=== PATIENT | male | born 1970 | race Caucasian/White ===

== ENCOUNTER 2021-10-08 10:36 | Outpatient (REF) | payer OTHER, SELFPAY ==
[2021-10-08 12:34] LABS: Hematocrit 45.2 % (42.0-52.0); Hemoglobin 15.2 g/dl (14.0-18.0); Mean Corpuscular HGB Conc 33.6 g/dl (31.0-36.0); Mean Corpuscular Hemoglobin 30.6 pg (27.0-33.0); Mean Corpuscular Volume 91.1 fL (80.0-98.0); Mean Platelet Volume 11.2 fL (9.4-12.4); Platelet Count 187 X10*3/uL (160-400); Red Blood Count 4.96 X10*6/uL (4.60-5.80); Red Cell Distribution Width 12.6 % (11.0-16.0); White Blood Count 6.6 X10*3/uL (4.8-10.8)
[2021-10-08 13:12] LABS: Alanine Aminotransferase 33 U/L (0-40); Albumin Level 4.7 g/dL (3.5-5.0); Alkaline Phosphatase 80 U/L (39-117); Anion Gap 15 (12-20); Aspartate Amino Transferase 25 U/L (5-37); Bilirubin Direct 0.3 mg/dL (0.0-0.5); Bilirubin Total 0.9 mg/dL (0.0-1.0); Blood Urea Nitrogen 15 mg/dL (9-16); Calcium 9.1 mg/dL (8.4-10.2); Carbon Dioxide 24 mmol/L (22-29); Chloride 104 mmol/L (96-108); Cholesterol 206 mg/dL; Estimated Glomerular Filt Rate > 60; Glucose Random 91 mg/dL (60-115); HDL Cholesterol 28 mg/dL; Potassium 4.3 mmol/L (3.3-5.1); Sodium 139 mmol/L (135-145); Total Protein 7.7 g/dL (6.5-8.0); Triglycerides 624 mg/dL
[2021-10-08 13:13] LABS: Appearance Urine CLEAR; Color Urine YELLOW; Glucose Urine UA NEG (NEG); Leukocyte Esterase Urine NEG (NEG); Nitrite Urine NEG (NEG); PH 5.5 (5.0-8.0); Specific Gravity - Urine >= 1.030 (1.005-1.025); Urine Blood NEG (NEG); Urine Ketones 5 MG/DL (NEG); Urine Protein NEG (NEG-TRACE)
[2021-10-08 13:20] LABS: Prostate Specific Antigen Scr 0.32 ng/mL (<0.05-4.0); Thyroid Stimulating Hormone 1.92 uIU/mL (0.32-4.0)
== END 2021-10-08 10:37 | disposition home or self-care (01) ==
LOC: HO.LAB 10:36
PROVIDERS: PCP Internal Medicine; Visit Provider Internal Medicine
DX: E78.00 Pure hypercholesterolemia, unspecified (principal); Z12.5 Encounter for screening for malignant neoplasm of prostate
CPT/HCPCS: 36415; 80048; 80061; 80076; 81003; 84153; 84443; 85027

== ENCOUNTER 2022-12-09 11:44 | Outpatient (AMB) | payer OTHER, SELFPAY ==
--- NOTE | 2022-12-09 12:55 | AM.OFFWIN_ITS ---
Intake Vital Signs 12/09/22 12:56 Weight 214 lb BP 160/100 H Blood Pressure Location Rt brachial Position Sitting Pulse 70 Pulse Source Pulse Oximeter Pulse Oximetry (%) 97 Oxygen Delivery Method Room Air Intake Visit Reasons: EST/breathing problems Intake Note: Patient here because he has been having some breathing problems, cough, chills, nausea and wheezing. Patient Tobacco Use Status: Current everyday Tobacco user Allergies No Known Allergies [No Known Allergies*] Allergy (Verified 12/09/22 12:58) Do you need a note to return to daycare/school/sports/work: Yes HPI EST/breathing problems HPI Details Patient presents for a sick visit. Reporting symptoms of sinus congestion, sore throat and difficulty swallowing. Low-grade fever. No family member is sick. No recent travel. Patient reports symptoms of malaise and fatigue.. [facility] Surgical History No pertinent past surgical history Family History Father Substance use disorder Mother Medical history unknown Social History Housing: House Alcohol intake: current Alcohol intake frequency: 0-2 drinks per day Alcohol type: hard liquor Patient Tobacco Use Status: Current everyday Tobacco user Tobacco use type: Cigarette Cigarettes Per Day: 5 e-Cigarette/Vaping Use: Never Used Second Hand Smoke Exposure: No service: No Current occupational status: employed Current occupational exposures/hazards: No Cognitive needs: No Hearing needs: No Vision needs: Yes Physical Exam Vital Signs: Last Vital Signs Pulse 70 12/09/22 12:56 BP 160/100 H 12/09/22 12:56 Pulse Ox 97 12/09/22 12:56 Oxygen Delivery Method Room Air 12/09/22 12:56 Const General: cooperative and healthy appearing Nutritional Appearance: well nourished Orientation/consciousness: patient oriented x3 Limitations: no limitations HEENT Head: Yes normal to inspection Eyes General: appearance normal, both eyes and all related structures Neck Neck: Yes normal visual inspection Chest Chest palpation & inspection: normal palpation of entire chest wall Resp Effort & Inspection: normal respiratory effort Neuro General: patient oriented x3 Assessment & Plan Assessment & Plan (1) Acute bronchitis: Code(s): J20.9 - Acute bronchitis, unspecified Plan: Antibiotics ordered. Increase fluid intake. Tylenol for aches and pains. If symptoms worsen, follow-up here for a recheck. Chest x-ray was personally reviewed by me. Orders: Orders XR chest 2V Today R05.9 - Cough, unspecified BinaxNOW Covid-19 Ag Today J06.9 - Acute upper respiratory infection, unspecified Medications: New azithromycin take 500 mg today (day 1), then 250 mg for 4 days (days 2-5) PO 6 tabs 0RF prednisone 60 mg (3 x 20 mg) PO DAILY 9 tabs 0RF albuterol sulfate 90 mcg/actuation (Ventolin HFA) 1 inh inhalation QID PRN 8.5 grams 1RF shortness of breath or wheezing Coding Level of Care Code Est Pt Level 4 (47533) Diagnoses Acute bronchitis J20.9
[2022-12-09 12:56] VITALS: BP 160/100; PULSE 70; O2SAT 97
== END 2022-12-09 13:59 | disposition home or self-care (01) ==
PROVIDERS: PCP Internal Medicine; Visit Provider Internal Medicine
DX: J20.9 Acute bronchitis, unspecified (principal)
CPT/HCPCS: 99214

== ENCOUNTER 2022-12-09 13:21 | Outpatient (REF) | payer OTHER, SELFPAY ==
--- NOTE | ~2022-12-09 | XR_ITS ---
EXAMINATION: XR CHEST 2 VIEW CLINICAL INFORMATION: Cough COMPARISON: 10/06/2019 TECHNIQUE: PA and lateral views of the chest obtained. FINDINGS: The lungs are clear. There are no pleural effusions. The cardiomediastinal silhouette is normal. XR/XR chest 2V IMPRESSION: No acute cardiopulmonary disease.
[2022-12-09 14:03] LABS: Binax Internal Control QC Valid; Binax Now Covid-19 Ag Negative (Negative); Binax Performed by: HO.BONILM
== END 2022-12-09 13:22 | disposition home or self-care (01) ==
LOC: HO.HMGCX 13:21
PROVIDERS: PCP Internal Medicine; Visit Provider Internal Medicine
DX: R05.9 Cough, unspecified (principal); J06.9 Acute upper respiratory infection, unspecified; Z20.822 Contact with and (suspected) exposure to COVID-19
CPT/HCPCS: 71046; 87811; C9803

== ENCOUNTER 2023-05-07 08:20 | Outpatient (AMB) | payer OTHER, SELFPAY ==
[2023-05-07 08:24] VITALS: BP 140/82; PULSE 85; O2SAT 98; BMI 30.4
--- NOTE | 2023-05-07 08:24 | MHC.PC.OV ---
Vital Signs 05/07/23 08:24 Height 5 ft 9 in Weight 206 lb BMI 30.4 BP 140/82 H Blood Pressure Location Lt brachial Position Sitting Pulse 85 Pulse Source Pulse Oximeter Pulse Oximetry (%) 98 Oxygen Delivery Method Room Air Intake Visit Reasons: Physical Exam Allergies No Known Allergies [No Known Allergies*] Allergy (Verified 05/07/23 09:01) Medication List - Last Reconciled 05/07/23 by Toney Gage MD albuterol sulfate 90 mcg/actuation (Ventolin HFA) 1 inh inhalation QID PRN citalopram 10 mg PO DAILY Tobacco use date assessed: 05/07/23 Dental Screening Dental Screen Date: 05/07/23 Did you have a dental visit in the last 12 months?: Yes Did you have a dental problem in the last 6 months where you did not have access to dental care?: No Was dental information given to patient?: Patient has dentist HPI Physical Exam HPI Details 52-year-old male presents to the office for an annual physical. [facility] Medical History (Updated 05/07/23 @ 09:12 by Toney Gage MD) Generalized anxiety disorder Surgical History No pertinent past surgical history Family History Father Substance use disorder Mother Medical history unknown Social History Housing: House Alcohol intake: current Alcohol intake frequency: 0-2 drinks per day Alcohol type: hard liquor Patient Tobacco Use Status: Current everyday Tobacco user Tobacco use type: Cigarette Cigarettes Per Day: 10 e-Cigarette/Vaping Use: Never Used Second Hand Smoke Exposure: No service: No Current occupational status: employed Current occupational exposures/hazards: No Cognitive needs: No Hearing needs: No Vision needs: Yes Questionnaire PHQ-9 Over the last 2 weeks, how often have you been bothered by any of the following problems? 1. Little interest or pleasure in doing things: not at all 2. Feeling down, depressed, or hopeless: not at all 3. Trouble falling or staying asleep, or sleeping too much: not at all 4. Feeling tired or having little energy: not at all 5. Poor appetite or overeating: not at all 6. Feeling bad about yourself - or that you are a failure or have let yourself or your family down: not at all 7. Trouble concentrating on things, such as reading the newspaper or watching television: not at all 8. Moving or speaking so slowly that other people could have noticed. Or the opposite - being so fidgety or restless that you have been moving around a lot more than usual: not at all 9. Thoughts that you would be better off or of hurting yourself in some way: not at all Total score: 0 Depression Screening Interpretation: Negative Depression Screening Done: Yes Source: Developed by Drs. Andi Alvarado, Antonette Ulloa, Nicolas Camarillo and colleagues, with an educational cristobal from [employer]. Thrive Questionnaire Date Thrive assessed: 05/07/23 I am a: Patient What is your living situation today?: I have a steady place to live Within the past 12 months, did the food you bought not last and you didn't have the money to get more?: Never true Within the past 12 months, did you worry whether your food would run out before you got money to buy more?: Never true Do you have trouble paying for medicines?: No Do you have trouble getting transportation to medical appointments?: No Do you have trouble paying your heating and electricity bill?: No Do you have trouble taking care of your child, family member or friend?: No Do you have trouble with day-to-day activities such as bathing, preparing meals, shopping, managing finances, etc.?: No Are you currently unemployed and looking for a job?: No Are you interested in more education?: No Currently or been in a relationship where the following occur: no concerns reported THRIVE Score: 0 AUDIT C Alcohol Use Questionnaire (AUDIT-C) 1. How often do you have a drink containing alcohol?: 4 or more times a week 2. How many drinks containing alcohol do you have on a typical day when you are drinking?: 1 or 2 3. How often do you have six or more drinks on one occasion?: Never Total Score: 4 GARY-7 AMB Questionnaire GARY-7 Date GARY - 7 assessed: 05/07/23 Feeling nervous, anxious, or on edge: 1 = Several days Not being able to stop or control worryin = Several days Worrying too much about different things: 1 = Several days Trouble relaxin = Not at all Being so restless that it is hard to sit still: 0 = Not at all Becoming easily annoyed or irritable: 0 = Not at all Feeling afraid as if something awful might happen: 0 = Not at all Total GARY-7 score (0-4 normal; 5-9 mild; 10-14 moderate; 15-21 severe): 3 Source: Developed by Drs. Andi Alvarado, Antonette Ulloa, Nicolas Camarillo and colleagues, with an educational cristobal from [employer]. Physical exam (Primary Care) Vital Signs: Last Vital Signs Pulse 85 05/07/23 08:24 BP 140/82 H 05/07/23 08:24 Pulse Ox 98 05/07/23 08:24 Oxygen Delivery Method Room Air 05/07/23 08:24 Care Plan Goal for BP management: Blood pressure is stable. Currently on no medications. BMI result Body Mass Index 30.4 BMI Assessment/Plan discussion: High (1 lb per week weight loss suggested.) BMI High, discussed plan: lifestyle, weight reduction and dietary Tobacco/Smoking Status: Tobacco use Status Tobacco use date assessed 05/07/23 05/07/23 08:30 Patient Tobacco Use Status Current everyday Tobacco 05/07/23 08:30 Tobacco use type Cigarette 05/07/23 08:30 e-Cigarette/Vaping Use Never Used 05/07/23 08:30 PHQ-9: PHQ-9 Score PHQ-9: Total score 0 05/07/23 08:30 Depression Screening Interpretation: Negative Thrive Assessment: Date of Thrive Assessment Date Thrive assessed 05/07/23 05/07/23 08:30 Currently or been in a relationship where the following occur: no concerns reported Advance Care Planning discussion: Exists, not on file Date of discussion: 05/07/23 Who was present: Patient Forms completed: Health Care Proxy Time spent: 1-15 minutes, not on file Const General: cooperative and healthy appearing Nutritional Appearance: well nourished Orientation/consciousness: patient oriented x3 Limitations: no limitations HENMT Head: Yes normal to inspection Eyes General: appearance normal, both eyes and all related structures Neck Neck: Yes normal visual inspection Chest Chest palpation & inspection: normal palpation of entire chest wall Resp Effort & Inspection: normal respiratory effort Other: Genital: Scrotum is normal. Testicles are normal to palpation. Neuro General: patient oriented x3 Assessment and Plan Assessment & Plan (1) Annual physical exam: Code(s): Z00.00 - Encounter for general adult medical examination without abnormal findings Plan: Blood work has been ordered. Screening colonoscopy has been ordered. (2) Generalized anxiety disorder: Code(s): F41.1 - Generalized anxiety disorder Orders: Orders Complete Blood Count no Diff Today Z00.00 - Encounter for general adult medical examination without abnormal findings Lipid Panel Today Z00.00 - Encounter for general adult medical examination without abnormal findings Thyroid Stimulating Hormone Today Z00.00 - Encounter for general adult medical examination without abnormal findings Basic Metabolic Panel Today Z00.00 - Encounter for general adult medical examination without abnormal findings Liver Panel Today Z00.00 - Encounter for general adult medical examination without abnormal findings UA and rflx microscopic Today Z00.00 - Encounter for general adult medical examination without abnormal findings Prostate Specific Antigen Scr Today Z00.00 - Encounter for general adult medical examination without abnormal findings Coding Level of Care Code Est Pt Prev Care 40-64y(56800) Diagnoses Annual physical exam Z00.00 Generalized anxiety disorder F41.1 Additional Codes Vital Signs *Quality* - Advance Care Planning discussion: Exists, not on file ([id number]) Vital Signs *Quality* - Time spent: 1-15 minutes, not on file ([id number])
== END 2023-05-07 08:57 | disposition home or self-care (01) ==
PROVIDERS: PCP Internal Medicine; Visit Provider Internal Medicine
DX: Z00.00 Encounter for general adult medical examination without abnormal findings (principal); F41.1 Generalized anxiety disorder
CPT/HCPCS: 1123F; 1124F; 99396

== ENCOUNTER 2023-05-07 09:07 | Outpatient (REF) | payer OTHER, SELFPAY ==
[2023-05-07 09:37] LABS: Hematocrit 46.9 % (42.0-52.0); Hemoglobin 16.6 g/dl (14.0-18.0); Mean Corpuscular HGB Conc 35.4 g/dl (31.0-36.0); Mean Corpuscular Hemoglobin 31.3 pg (27.0-33.0); Mean Corpuscular Volume 88.3 fL (80.0-98.0); Mean Platelet Volume 9.8 fL (9.4-12.4); Platelet Count 203 X10*3/uL (160-400); Red Blood Count 5.31 X10*6/uL (4.60-5.80); Red Cell Distribution Width 12.6 % (11.0-16.0); White Blood Count 7.4 X10*3/uL (4.8-10.8)
[2023-05-07 10:34] LABS: Prostate Specific Antigen Scr 0.24 ng/mL (<0.05-4.0)
[2023-05-07 10:42] LABS: Thyroid Stimulating Hormone 2.24 uIU/mL (0.32-4.0); Triglycerides 2375 mg/dL (<150)
[2023-05-07 10:56] LABS: HDL Cholesterol 30 mg/dL (>40)
[2023-05-07 10:58] LABS: Alanine Aminotransferase 48 U/L (0-40); Albumin Level 4.7 g/dL (3.5-5.0); Alkaline Phosphatase 81 U/L (39-117); Anion Gap 18 (12-20); Aspartate Amino Transferase 32 U/L (5-37); Bilirubin Direct 0.2 mg/dL (0.0-0.5); Bilirubin Total 0.7 mg/dL (0.0-1.0); Blood Urea Nitrogen 19 mg/dL (9-16); Calcium 9.7 mg/dL (8.4-10.2); Carbon Dioxide 22 mmol/L (22-29); Chloride 102 mmol/L (96-108); Estimated Glomerular Filt Rate > 60; Glucose Random 115 mg/dL (60-115); Potassium 4.2 mmol/L (3.3-5.1); Sodium 138 mmol/L (135-145); Total Protein 8.3 g/dL (6.5-8.0)
[2023-05-07 10:59] LABS: Cholesterol 401 mg/dL (<200)
[2023-05-07 11:13] LABS: Appearance Urine Clear; Color Urine Dark Yellow; Glucose Urine UA Negative (Negative); Leukocyte Esterase Urine Negative (Negative); Nitrite Urine Negative (Negative); PH 5.5 (5.0-9.0); Specific Gravity - Urine >= 1.030 (1.005-1.025); UMIC TRIGGER UA YES; Urine Blood Negative (Negative); Urine Ketones Trace mg/dL (Negative); Urine Protein 30 (1+) mg/dL (Neg-Trace)
[2023-05-07 11:17] LABS: Bacteria Urine None Seen (None Seen); Hyaline Casts Urine 0-2 /LPF (0-2); RBC Urine 0-2 /HPF (0-2); Squamous Epithelial Cell Urine 0-2 /HPF (0-2); WBC Urine 0-5 /HPF (0-5)
== END 2023-05-07 09:08 | disposition home or self-care (01) ==
LOC: HO.LAB 09:07
PROVIDERS: PCP Internal Medicine; Visit Provider Internal Medicine
DX: Z00.00 Encounter for general adult medical examination without abnormal findings (principal); Z12.5 Encounter for screening for malignant neoplasm of prostate
CPT/HCPCS: 36415; 80048; 80061; 80076; 81001; 81003; 84153; 84443; 85027

== ENCOUNTER 2023-11-04 10:25 | Outpatient (REF) | payer OTHER, SELFPAY ==
[2023-11-04 12:24] LABS: Appearance Urine Clear; Color Urine Yellow; Glucose Urine UA Negative (Negative); Leukocyte Esterase Urine Negative (Negative); Nitrite Urine Negative (Negative); Urine Blood Negative (Negative); Urine Ketones Negative (Negative); Urine Protein Negative (Neg-Trace)
[2023-11-04 13:01] LABS: Alanine Aminotransferase 32 U/L (0-40); Albumin Level 4.6 g/dL (3.5-5.0); Alkaline Phosphatase 73 U/L (39-117); Anion Gap 16 (12-20); Aspartate Amino Transferase 26 U/L (5-37); Bilirubin Direct 0.2 mg/dL (0.0-0.5); Bilirubin Total 0.8 mg/dL (0.0-1.0); Blood Urea Nitrogen 22 mg/dL (9-16); Calcium 9.9 mg/dL (8.4-10.2); Carbon Dioxide 25 mmol/L (22-29); Chloride 103 mmol/L (96-108); Cholesterol 264 mg/dL (<200); Estimated Glomerular Filt Rate > 60; Glucose Random 107 mg/dL (60-115); HDL Cholesterol 38 mg/dL (>40); Potassium 4.5 mmol/L (3.3-5.1); Sodium 139 mmol/L (135-145); Total Protein 7.8 g/dL (6.5-8.0); Triglycerides 625 mg/dL (<150)
[2023-11-04 13:21] LABS: Thyroid Stimulating Hormone 1.82 uIU/mL (0.32-4.0)
[2023-11-04 13:41] LABS: Hematocrit 46.9 % (42.0-52.0); Mean Corpuscular HGB Conc 34.1 g/dl (31.0-36.0); Mean Corpuscular Volume 90.9 fL (80.0-98.0); Mean Platelet Volume 10.6 fL (9.4-12.4); Platelet Count 184 X10*3/uL (160-400); Red Blood Count 5.16 X10*6/uL (4.60-5.80); Red Cell Distribution Width 12.9 % (11.0-16.0)
== END 2023-11-04 10:26 | disposition home or self-care (01) ==
LOC: HO.LAB 10:25
PROVIDERS: PCP Internal Medicine; Visit Provider Internal Medicine
DX: E78.00 Pure hypercholesterolemia, unspecified (principal); F41.1 Generalized anxiety disorder
CPT/HCPCS: 36415; 80048; 80061; 80076; 81003; 84443; 85027

== ENCOUNTER 2023-11-05 14:59 | Outpatient (AMB) | payer OTHER, SELFPAY ==
[2023-11-05 15:02] VITALS: BP 160/92; PULSE 67; O2SAT 98; BMI 28.9
--- NOTE | 2023-11-05 15:02 | MHC.PC.OV ---
Vital Signs 11/05/23 15:02 Height 5 ft 9 in Weight 196 lb 0.8 oz BMI 28.9 BP 160/92 H Blood Pressure Location Lt brachial Position Sitting Pulse 67 Pulse Source Pulse Oximeter Pulse Oximetry (%) 98 Oxygen Delivery Method Room Air Intake Visit Reasons: 6mth f/u Intake Note: Patient is here to follow up Talent Rep Required: No Allergies No Known Allergies [No Known Allergies*] Allergy (Verified 11/10/23 11:08) Medication List - Last Reconciled 11/10/23 by Toney Gage MD citalopram 10 mg PO DAILY lisinopril 10 mg PO DAILY rosuvastatin 10 mg PO DAILY Tobacco use date assessed: 05/07/23 Dental Screening Dental Screen Date: 05/07/23 HPI 6mth f/u HPI Details 53-year-old male presents to the office for a follow-up visit. The citalopram is helping him. He is tolerating the medication well and reporting no side effects. Patient gives history of excessive alcohol use. [facility] Medical History (Updated 11/10/23 @ 11:09 by Toney Gage MD) Essential hypertension Borderline hypercholesterolemia Generalized anxiety disorder Surgical History No pertinent past surgical history Family History Father Substance use disorder Mother Medical history unknown Social History Housing: House Alcohol intake: current Alcohol intake frequency: 0-2 drinks per day Alcohol type: hard liquor Patient Tobacco Use Status: Current everyday Tobacco user Tobacco use type: Cigarette Cigarettes Per Day: 10 e-Cigarette/Vaping Use: Never Used Second Hand Smoke Exposure: No service: No Current occupational status: employed Current occupational exposures/hazards: No Cognitive needs: No Hearing needs: No Vision needs: Yes Questionnaire PHQ-9 Over the last 2 weeks, how often have you been bothered by any of the following problems? 1. Little interest or pleasure in doing things: not at all 2. Feeling down, depressed, or hopeless: not at all 3. Trouble falling or staying asleep, or sleeping too much: not at all 4. Feeling tired or having little energy: not at all 5. Poor appetite or overeating: not at all 6. Feeling bad about yourself - or that you are a failure or have let yourself or your family down: not at all 7. Trouble concentrating on things, such as reading the newspaper or watching television: not at all 8. Moving or speaking so slowly that other people could have noticed. Or the opposite - being so fidgety or restless that you have been moving around a lot more than usual: not at all 9. Thoughts that you would be better off or of hurting yourself in some way: not at all Total score: 0 Depression Screening Interpretation: Negative Depression Screening Done: Yes Source: Developed by Drs. Andi Alvarado, Antonette Ulloa, Nicolas Camarillo and colleagues, with an educational cristobal from [employer]. Thrive Questionnaire Date Thrive assessed: 05/07/23 AUDIT C Alcohol Use Questionnaire (AUDIT-C) 1. How often do you have a drink containing alcohol?: 4 or more times a week 2. How many drinks containing alcohol do you have on a typical day when you are drinking?: 1 or 2 3. How often do you have six or more drinks on one occasion?: Never Total Score: 4 GARY-7 AMB Questionnaire GARY-7 Date GARY - 7 assessed: 05/07/23 Source: Developed by Drs. Andi Alvarado, Nicolas Aranda and colleagues, with an educational cristobal from [employer]. Physical exam (Primary Care) Vital Signs: Last Vital Signs Pulse 67 11/05/23 15:02 BP 160/92 H 11/05/23 15:02 Pulse Ox 98 11/05/23 15:02 Oxygen Delivery Method Room Air 11/05/23 15:02 BMI result Body Mass Index 28.9 Tobacco/Smoking Status: Tobacco use Status Tobacco use date assessed 05/07/23 11/05/23 15:03 Patient Tobacco Use Status Current everyday Tobacco 11/05/23 15:03 Tobacco use type Cigarette 11/05/23 15:03 e-Cigarette/Vaping Use Never Used 11/05/23 15:03 PHQ-9: PHQ-9 Score PHQ-9: Total score 0 11/05/23 16:29 Depression Screening Interpretation: Negative Thrive Assessment: Date of Thrive Assessment Date Thrive assessed 05/07/23 11/05/23 15:03 Const General: cooperative and healthy appearing Nutritional Appearance: well nourished Orientation/consciousness: patient oriented x3 Limitations: no limitations HENMT Head: Yes normal to inspection Eyes General: appearance normal, both eyes and all related structures Neck Neck: Yes normal visual inspection Chest Chest palpation & inspection: normal palpation of entire chest wall Resp Effort & Inspection: normal respiratory effort Neuro General: patient oriented x3 Assessment and Plan Assessment & Plan (1) Borderline hypercholesterolemia: Code(s): E78.00 - Pure hypercholesterolemia, unspecified Plan: Blood work reviewed. LDL is elevated. Statins have been started. Encouraged patient to reduce the amount of alcohol consumed. (2) Essential hypertension: Code(s): I10 - Essential (primary) hypertension Plan: Blood pressure is elevated. ADRIENNE inhibitors have been started. Will monitor the pressures. Medications: New rosuvastatin 10 mg PO DAILY 90 tabs 1RF lisinopril 10 mg PO DAILY 90 tabs 1RF Coding Level of Care Code Est Pt Level 4 (73308) Complex EM visit Add On G2211 Diagnoses Borderline hypercholesterolemia E78.00 Essential hypertension I10
== END 2023-11-05 16:23 | disposition home or self-care (01) ==
PROVIDERS: PCP Internal Medicine; Visit Provider Internal Medicine
DX: E78.00 Pure hypercholesterolemia, unspecified (principal); I10 Essential (primary) hypertension
CPT/HCPCS: 99214; G2211

== ENCOUNTER 2024-08-24 15:18 | Outpatient (AMB) | payer OTHER, SELFPAY ==
--- NOTE | 2024-08-24 15:21 | A.OFFVIS_ITS ---
Vital Signs 08/24/24 15:22 Height 5 ft 9 in Weight 207 lb 3.752 oz BMI 30.6 BP 160/81 H Blood Pressure Location Lt brachial Position Sitting Pulse 83 Intake Visit Reasons: colo screening Intake Note: Sebastian presents in the office as a colonoscopy screening. CC: HE states that he is not having any concerns at this time. Bar Assistant Required: No Allergies No Known Allergies [No Known Allergies*] Allergy (Verified 08/24/24 15:23) HPI HPI colo screening: Details: Patient is a 53-year-old male with PMH of GARY, hypertension and hyperlipidemia. Referred by PCP for pre colonoscopy screening Sebastian reports having regular bowel movements every day without difficulty. His weight has increased from the 190s, which he attributes his current diet. His current BP is 160/80, and he admits to dietary choices higher in sodium that may affect this and is working to reduce. Endorses nicotine dependence and consumes alcohol daily but has no acute withdrawal symptoms. Patient denies: fever/chills, n/v, appetite changes, pyrosis, regurgitation,dysphasia, unintentional wt loss, ab pain or melena/hematochezia. Social History - Diet: High sodium intake recently due to homemade beef jerky consumption. - Alcohol/Tobacco/Drug Use: Consumes vodka daily (approximately half a bottle); occasional marijuana use; smokes 4 cigarettes per day, typically in the evening. - Occupation: [employer] instructor. - family hx as below -denies personal hx of CA -tolerated anesthesia in the past without difficulty. PFSH Medical History (Updated 08/24/24 @ 15:31 by Desire Castellanos CNP) Alcohol use Colon cancer screening Essential hypertension Borderline hypercholesterolemia Generalized anxiety disorder Surgical History No pertinent past surgical history Family History (Updated 08/24/24 @ 15:45 by Desire Castellanos CNP) Father Substance use disorder Mother Lewy body dementia Social History Housing: House Alcohol intake: current Alcohol intake frequency: 0-2 drinks per day Alcohol type: hard liquor Patient Tobacco Use Status: Current everyday Tobacco user Tobacco use type: Cigarette Cigarettes Per Day: 10 e-Cigarette/Vaping Use: Never Used Second Hand Smoke Exposure: No service: No Current occupational status: employed Current occupational exposures/hazards: No Cognitive needs: No Hearing needs: No Vision needs: Yes Review of Systems Const Reports as per [facility] ENT Reports as per [facility] Card Reports as per [facility] Resp Reports as per [facility] GI Reports as per [facility] Reports as per [facility] Physical Exam Vital Signs: Last Vital Signs Pulse 83 08/24/24 15:22 BP 160/81 H 08/24/24 15:22 BMI result Body Mass Index 30.6 Const General: healthy appearing, no acute distress and well developed Nutritional Appearance: well nourished Orientation/consciousness: patient oriented x3 HEENT Head: Yes normal to inspection, Yes normocephalic and Yes atraumatic Face and sinus: Yes normal facial exam Eyes General: appearance normal, both eyes and all related structures Neck Neck: Yes normal visual inspection Resp Effort & Inspection: normal respiratory effort, able to speak in complete sentences, no tracheal deviation and symmetric chest movement Auscultation: clear to auscultation bilaterally Cardio Jugular venous distension: no JVD Rate: regular rate Rhythm: regular rhythm Heart sounds: S1 normal heart sound present, S2 normal heart sound present, no gallops and no murmurs GI Inspection: Yes normal to inspection, No distended and Yes obesity Palpation (GI): Soft to palpation, not firm, nontender and No hepatosplenomegaly present Auscultation: normal bowel sounds Neuro General: patient oriented x3 Gait exam (Neuro): Normal gait present Psych Appearance: grossly normal Mental Status: mental status grossly normal Speech and movement: Normal speech and movement present Affect: normal affect Attitude: cooperative Thought process: Normal thought process present Thought content: Normal thought content present Insight: Good insight present (Psych) Judgement: Good judgement present (Psych) Assessment & Plan Assessment & Plan (1) Colon cancer screening: Code(s): Z12.11 - Encounter for screening for malignant neoplasm of colon Category: Medical Plan: Due for index screening colonoscopy. Diagnostic Tests: Prescriptions for laxative tablets and Miralax sent to pharmacy; instructions for Gatorade purchase and clear liquid diet given. Patient educated on procedure preparation, including avoiding certain foods and ensuring clear liquid intake. Advised on necessity for ride post-procedure due to sedation. (2) Alcohol use: Code(s): F10.90 - Alcohol use, unspecified, uncomplicated Category: Social Hx Plan: Daily ETOH use (vodka, ~? bottle/day); no hx of severe withdrawal Plan: - Instructed to abstain from ETOH during bowel prep and day of procedure - Monitor for withdrawal sx (tremor, N/V, diaphoresis, confusion, seizures); ad vised to contact clinic if sx develop - Discussed ongoing ETOH use with PCP; pt aware of pharmacologic options for ETOH cessation; encouraged to follow up for further support Plan follow up after colonoscopy as needed Time: I spent a total of 25 minutes on the date of encounter which includes: Preparing to see the patient (reviewed previous documentation, test results and medical history) Performing a medically appropriate exam and/or evaluation Ordering medications, tests, and procedures Documenting clinical information in the health record Medications: New polyethylene glycol 3350 (Miralax) per colonoscopy prep instructions 238 grams PO ONCE 238 grams 0RF Desire Sarpey, RN PROCEDURES bisacodyl Take four tablets once for 1 day per colonoscopy instructions 5 mg PO ONCE 1 day 4 tabs 0RF Desire Jasmin, RN PROCEDURES Refilled rosuvastatin 10 mg PO DAILY 90 tabs 1RF Toney Gage MD Coding Level of Care Code New Pt New Pt Level 3 (77002) Patient Type New Diagnoses Colon cancer screening Z12.11 Alcohol use F10.90
[2024-08-24 15:22] VITALS: BP 160/81; PULSE 83; BMI 30.6
== END 2024-08-24 15:53 | disposition home or self-care (01) ==
PROVIDERS: PCP Internal Medicine; Visit Provider Nurse Practitioner Family
DX: Z01.818 Encounter for other preprocedural examination (principal); Z12.11 Encounter for screening for malignant neoplasm of colon; F10.90 Alcohol use, unspecified, uncomplicated
CPT/HCPCS: 99203

== ENCOUNTER → 2024-08-24 15:18 | Outpatient (BNVA) | payer SELFPAY | PROVIDERS: PCP Internal Medicine; Visit Provider Nurse Practitioner Family ==

== ENCOUNTER 2024-10-14 07:01 | Outpatient (REF) | payer OTHER, SELFPAY ==
--- OUTSIDE RECORDS SUMMARY | 2024-10-14 07:03 | XMS_ITS | Clinical Summary ---
Author Organization [facility] Address [address] [place], [place] [id number] Phone Care Team Providers Care Cytogenetics Laboratory Manager Name Role Phone Unknown, Unknown Primary Care Provider Jeannine garcia Allergies Active Allergy Reactions Criticality Noted Date Comments Hay Fever And Allergy Relief 011 Medications nortriptyline (PAMELOR) 10 MG capsuleIndicatio ns:Chronic tension-type headache, not intractable TAKE 1 to 2 TABLETS AT BEDTIME FOR TENSION HEADACHE. Caution may cause drowsiness 60 capsule 8 Active citalopram (CELEXA) 10 MG tabletIndication s:Mood disorder Take 1 tablet (10 mg total) by mouth daily. 90 tablet 3 9 Active fenofibrate (LOFIBRA) 54 MG tablet Take 1 tablet (54 mg total) by mouth daily. 90 tablet 3 9 Active Active Problems Problem Noted Date Diagnosed Date Mood disorder 12/01/2017 Rotator cuff tendonitis, right 12/01/2017 Screening for alcohol problem 12/01/2017 Moderate tobacco use disorder 12/01/2017 Habitual alcohol use 12/01/2017 Chronic tension-type headache, not intractable 0 11/30/2017 Mixed hyperlipidemia 09/24/2017 Contact dermatitis due to poison bry 09/24/2017 History of drug abuse in remission 11/24/2016 Chronic back pain 09/02/2010 Status post tympanoplasty 09/02/2010 Immunizations Immunization Administration Dates Next Due Influenza Quadrivalent Preservative Free IM 11/21 Influenza, whole 02/18/2016,02/28/2011 Pneumococcal polysaccharide PPSV23 11/30/2017 Td (adult),2 Lf Tetanus Toxoid, PF, Adsorbed Tdap 04/16/2012 Social History Tobacco Use Types Packs/Day Years Used Date Smoking Tobacco: Every Day Cigarettes 1 3 Smokeless Tobacco: Never Alcohol Use Standard Drinks/Week Comments Yes 0 (1 standard drink = 0.6 oz pur e alcohol) Education Answer Date Recorded Are you interested in more education? Not on tang e 07/18/2022 Are you concerned about learning? Not on file 07/18/2022 No 07/18/2022 No 07/18/2022 Digital Access Answer Date Recorded No 08/19/2022 No 08/19/2022 No 08/19/2022 Reliable internet access at home? Not on file 08/19/2022 Device with a working camera? Not on file Sex and Gender Information Value Date Recorded Sex Assigned at Not on file Legal Sex Male 4:30 PM EST Gender Identity Not on file Sexual Orientation Not on file Last Filed Vital Signs Vital Sign Reading Time Taken Comments Blood Pressure 138/80 11/30/2017 3:21 PM EDT Pulse 82 11/30/2017 3:21 PM EDT Temperature 37.2 C (99 F) 11/30/2017 3:21 PM EDT Respiratory Rate 12 09/24/2017 2:10 PM EDT Oxygen Saturation 98% 11/30/2017 3:21 PM EDT Inhaled Oxygen Concentration - - Weight 93.9 kg (207 lb) 11/30/2017 3:21 PM EDT Height 173.4 cm (5' 8.25 ) 11/30/2017 3:21 PM ED T Body Mass Index 31.24 11/30/2017 3:21 PM EDT Plan of Treatment Health Maintenance Due Date Last Done Comments SMOKING Hx and SMOKELESS TOBACCO SCREENING 09/30/1984 HEPATITIS C SCREENING 09/30/1989 COLOGUARD 09/30/2016 COLONOSCOPY 09/30/2016 COLORECTAL CANCER SCREENING 09/30/2016 FIT TEST 09/30/2016 FOBT 09/30/2016 SIGMOIDOSCOPY 09/30/2016 VIRTUAL COLONOSCOPY 09/30/2016 DEPRESSION SCREENING 11/30/2018 11/30/2017 PNEUMOCOCCAL VACCINES (50+ years) (2 of 2 - PCV) 11/30/2018 11/30/2017 ZOSTER VACCINES (1 of 2) 09/30/2021 Adult Td,Tdap Booster 04/16/2022 04/16/2012 , 10/06/2005 LIPID PANEL 11/30/2022 11/30/2017 COVID-19 VACCINE (2 2023-2 5 season) 2023 08/06/2020 HIV ONE-TIME SCREENING (18-6 5 YEARS) Completed 11/30/2017 HEPATITIS A VACCINES Aged Out No long er eligible based on patient's age to complete this topic HIB VACCINES Aged Out No longer eligi ble based on patient's age to complete this topic MENINGOCOCCAL VACCINES (ACWY) Aged Out No longer eligible based on patient's age to complete this topic MENINGOCOCCAL VACCINES (B) Aged Out N o longer eligible based on patient's age to complete this topic Medical Devices Not on file Procedures Procedure Name Priority Date/Time Associated Diagnosis Comments LIPID PANEL Routine 11/30/2017 6:49 PM EDT from Last 3 Months or Most Recently Relevant to Health Maintenance Results * (ABNORMAL) Lipid panel (11/30/2017 6:49 PM EDT) Cholesterol 203(Abnor ced H) <200 mg/dL [facility] Triglycerides 235(Abnor ced H) <150 mg/dL [facility] Cholesterol, HDL 38(Abnorm ally L) >40 mg/dL [facility] LDLC 118 <129 mg/dL [facility] Cholesterol/HDL Ratio 5.34(Abno rmally H) <4.96 [facility] 11/30/2017 6:49 PM EDT 11/30/2017 6:49 PM EDT us Aruna Castillo MD LAB BLOOD ORDERABLES [place] [address] from Last 3 Months or Most Recently Relevant to Health Maintenance Insurance [employer] PPO Care Teams Cytogenetics Laboratory Manager Relationship Specialty Start Date End Date Unknown, Unknown, PCP - General 04/01/19 Additional Source Comments The information contained in this document represents components of the legal health record. It is not the complete legal health record.[facility]
[2024-10-14 07:55] LABS: Hematocrit 45.0 % (42.0-52.0); Hemoglobin 15.4 g/dl (14.0-18.0); Mean Corpuscular HGB Conc 34.2 g/dl (31.0-36.0); Mean Corpuscular Hemoglobin 30.9 pg (27.0-33.0); Mean Corpuscular Volume 90.4 fL (80.0-98.0); NRBC Abs Auto 0.000 X10*3/uL (0.0-0.012); NRBC Pct Auto 0.0 /100WBC (0.0-0.2); Platelet Count 202 X10*3/uL (160-400); Red Blood Count 4.98 X10*6/uL (4.60-5.80); White Blood Count 7.0 X10*3/uL (4.8-10.8)
[2024-10-14 08:25] LABS: Appearance Urine Clear; Glucose Urine UA Negative (Negative); PH 5.5 (5.0-9.0); Specific Gravity - Urine 1.025 (1.005-1.025)
[2024-10-14 08:39] LABS: Alanine Aminotransferase 45 U/L (0-40); Albumin Level 4.7 g/dL (3.5-5.0); Alkaline Phosphatase 78 U/L (39-117); Anion Gap 18 (12-20); Aspartate Amino Transferase 53 U/L (5-37); Blood Urea Nitrogen 16 mg/dL (9-16); Calcium 9.0 mg/dL (8.4-10.2); Carbon Dioxide 24 mmol/L (22-29); Chloride 103 mmol/L (96-108); Cholesterol 310 mg/dL (<200); Estimated Glomerular Filt Rate > 60; HDL Cholesterol 27 mg/dL (>40); Potassium 4.5 mmol/L (3.3-5.1); Sodium 140 mmol/L (135-145); Total Protein 7.6 g/dL (6.5-8.0)
[2024-10-14 08:44] LABS: Thyroid Stimulating Hormone 2.34 uIU/mL (0.32-4.0); Triglycerides 1645 mg/dL (<150)
== END 2024-10-14 07:02 | disposition home or self-care (01) ==
LOC: HO.LAB 07:01
PROVIDERS: PCP Internal Medicine; Visit Provider Internal Medicine
DX: Z00.00 Encounter for general adult medical examination without abnormal findings (principal); I10 Essential (primary) hypertension
CPT/HCPCS: 36415; 80048; 80061; 80076; 81003; 84443; 85027

== ENCOUNTER 2024-10-17 15:41 | Outpatient (AMB) | payer OTHER, SELFPAY ==
--- NOTE | 2024-10-17 15:48 | MHC.PC.OV ---
Vital Signs 10/17/24 16:06 Height 5 ft 9 in Weight 206 lb 4 oz BMI 30.5 BP 140/76 H Blood Pressure Location Lt brachial Position Sitting Pulse 80 Pulse Source Pulse Oximeter Temp 97.3 F Temp Source Temporal Artery Scan Pulse Oximetry (%) 93 Oxygen Delivery Method Room Air Intake Visit Reasons: 6M follow up Intake Note: Patient is here to follow up on HTN, Hypercholesterolemia. Baggage Handler Required: No Director Of Player Personnel: Not Required per policy Accompanied by: Self / Same As Patient Allergies No Known Allergies (No Known Allergies*) Allergy (Verified 10/17/24 16:33) Medication List - Last Reconciled 10/17/24 by MARISOL Trevizo bisacodyl 5 mg PO ONCE 1 day citalopram 10 mg PO DAILY lisinopril 10 mg PO DAILY polyethylene glycol 3350 (Miralax) 238 grams PO ONCE rosuvastatin 10 mg PO DAILY Tobacco use date assessed: 10/17/24 Dental Screening Dental Screen Date: 10/17/24 Did you have a dental visit in the last 12 months?: No Did you have a dental problem in the last 6 months where you did not have access to dental care?: No Was dental information given to patient?: Patient has dentist HPI 6M follow up HPI Details The patient is a 54-year-old male presenting for management of hypertension and hypertriglyceridemia. Labs completed on 10/14/2024-to be reviewed The patient has a history of essential hypertension, which has been managed with medication. However, recent blood pressure readings have been elevated, possibly due to dietary factors such as high sodium intake from beef jerky consumed the night before the visit. He is aware of the need to limit salt intake and is currently on medication for hypertension. The patient also reports hypertriglyceridemia, which has been noted in previous lab results. He acknowledges consuming high-fat foods such as beef jerky, which may contribute to elevated triglyceride levels. He is not currently on medication specifically for triglycerides, and his cholesterol levels could not be calculated due to the high triglyceride levels. The patient has elevated liver enzymes, which may be related to alcohol consumption. He reports daily alcohol intake, which has decreased from a full bottle of vodka to half a bottle. He is aware of the need to reduce alcohol consumption gradually to avoid withdrawal symptoms. Preventative care measures include a planned colonoscopy, for which he has received a consultation and prescription but is awaiting scheduling. [facility] Medical History Alcohol use Colon cancer screening Essential hypertension Borderline hypercholesterolemia Generalized anxiety disorder Surgical History No pertinent past surgical history Family History Father Substance use disorder Mother Lewy body dementia Social History Housing: House Alcohol intake: current Alcohol intake frequency: 0-2 drinks per day Alcohol type: hard liquor Patient Tobacco Use Status: Current everyday Tobacco user Tobacco use type: Cigarette Cigarette Packs Per Day: 0.25 Cigarettes Per Day: 5 e-Cigarette/Vaping Use: Never Used Second Hand Smoke Exposure: Yes service: No Current occupational status: employed Current occupational exposures/hazards: No Cognitive needs: No Hearing needs: No Vision needs: Yes (Glasses) Questionnaire PHQ-9 Over the last 2 weeks, how often have you been bothered by any of the following problems? 1. Little interest or pleasure in doing things: not at all 2. Feeling down, depressed, or hopeless: several days (Currently on medication) 3. Trouble falling or staying asleep, or sleeping too much: not at all 4. Feeling tired or having little energy: not at all 5. Poor appetite or overeating: not at all 6. Feeling bad about yourself - or that you are a failure or have let yourself or your family down: not at all 7. Trouble concentrating on things, such as reading the newspaper or watching television: not at all 8. Moving or speaking so slowly that other people could have noticed. Or the opposite - being so fidgety or restless that you have been moving around a lot more than usual: not at all 9. Thoughts that you would be better off or of hurting yourself in some way: not at all Total score: 1 Depression Screening Interpretation: Negative Depression Screening Done: Yes 92494 - PHQ-9 Billing: Yes Source: Developed by Drs. Andi Alvarado, Antonette Ulloa, Nicolas Camarillo and colleagues, with an educational cristobal from [employer]. Thrive Questionnaire Date Thrive assessed: 10/17/24 I am a: Patient What is your living situation today?: I have a steady place to live Within the past 12 months, did the food you bought not last and you didn't have the money to get more?: Never true Within the past 12 months, did you worry whether your food would run out before you got money to buy more?: Never true Do you have trouble paying for medicines?: No Do you have trouble getting transportation to medical appointments?: No Do you have trouble paying your heating and electricity bill?: No Do you have trouble taking care of your child, family member or friend?: No Do you have trouble with day-to-day activities such as bathing, preparing meals, shopping, managing finances, etc.?: No Are you currently unemployed and looking for a job?: No Are you interested in more education?: No Please select the resources that you would like help with: None Currently or been in a relationship where the following occur: No concerns reported THRIVE Score: 0 AUDIT C Alcohol Use Questionnaire (AUDIT-C) 1. How often do you have a drink containing alcohol?: 4 or more times a week 2. How many drinks containing alcohol do you have on a typical day when you are drinking?: 3 or 4 3. How often do you have six or more drinks on one occasion?: Monthly Total Score: 7 GARY-7 AMB Questionnaire GARY-7 Date GARY - 7 assessed: 10/17/24 Feeling nervous, anxious, or on edge: 1 = Several days (Currently on medication) Not being able to stop or control worryin = Not at all Worrying too much about different things: 0 = Not at all Trouble relaxin = Not at all Being so restless that it is hard to sit still: 0 = Not at all Becoming easily annoyed or irritable: 0 = Not at all Feeling afraid as if something awful might happen: 0 = Not at all Total GARY-7 score (0-4 normal; 5-9 mild; 10-14 moderate; 15-21 severe): 1 Source: Developed by Drs. Andi Alvarado, Antonette Ulloa, Nicolas Camarillo and colleagues, with an educational cristobal from [employer]. GARY-7 Assessment Billing GARY-7 Assessment Tool: GARY-7 Assessment 06524 Review of Systems Const Denies body aches, Denies chills, Denies fever(s), Denies headache(s) and Denies poor appetite Eyes Reports no additional complaints ENT Denies dysphagia, Denies dizziness, Denies headache(s) and Denies odynophagia Card Denies chest pain, Denies syncope, Denies edema, Denies irregular heart rhythm, Denies lightheadedness and Denies dyspnea Resp Denies cough and Denies dyspnea GI Denies abdominal pain, Denies constipation, Denies dysphagia, Denies diarrhea, Denies nausea, Denies odynophagia and Denies vomiting Reports no additional complaints Musc Reports no additional complaints and Denies abnormal gait Skin/Breast Reports system reviewed and no additional complaints, except as documented Neuro Denies abnormal gait, Denies dizziness, Denies syncope and Denies headache(s) Psych Reports no additional complaints Physical exam (Primary Care) Vital Signs: Last Vital Signs Temp 97.3 F 10/17/24 16:06 Pulse 80 10/17/24 16:06 BP 140/76 H 10/17/24 16:06 Pulse Ox 93 10/17/24 16:06 Oxygen Delivery Method Room Air 10/17/24 16:06 BMI result Body Mass Index 30.5 Tobacco/Smoking Status: Tobacco use Status Tobacco use date assessed 10/17/24 10/17/24 16:14 Patient Tobacco Use Status Current everyday Tobacco 10/17/24 16:12 Tobacco use type Cigarette 10/17/24 16:12 e-Cigarette/Vaping Use Never Used 10/17/24 16:12 PHQ-9: PHQ-9 Score PHQ-9: Total score 1 10/17/24 16:39 Depression Screening Interpretation: Negative Thrive Assessment: Date of Thrive Assessment Date Thrive assessed 10/17/24 10/17/24 15:49 Currently or been in a relationship where the following occur: No concerns reported Const General: cooperative, healthy appearing, comfortable and no acute distress Orientation/consciousness: patient oriented x3 HENMT Head: Yes normocephalic Ears: hearing grossly normal bilaterally General nose exam: Normal external nose present Eyes General: appearance normal, both eyes and all related structures Conjunctivae: conjunctivae normal Neck Neck: Yes full ROM and Yes no lymphadenopathy Resp Effort & Inspection: normal respiratory effort Auscultation: clear to auscultation bilaterally, no crackles, no rales, no rhonchi and no wheezes Cardio Rate: regular rate Rhythm: regular rhythm Heart sounds: S1 normal heart sound present, S2 normal heart sound present, no gallops and no murmurs GI Palpation (GI): Soft to palpation and nontender Auscultation: normal bowel sounds General: Yes no CVA tenderness Back/Spine/Pelvis Back: no CVA tenderness Thoracic/Lumbar Spine: No lumbar spinal tenderness Skin General skin exam: no rashes or lesions noted Neuro General: patient oriented x3 Gait exam (Neuro): Normal gait present Extrem General: Yes normal to inspection, Yes full ROM and No edema Right upper extremity: full ROM Left upper extremity: full ROM Right lower extremity: full ROM; no edema Left lower extremity: full ROM; no edema Psych Affect: normal affect Attitude: cooperative Insight: Good insight present (Psych) Judgement: Good judgement present (Psych) Results Reviewed Results Reviewed: Laboratory Tests 10/14/24 10/14/24 07:13 07:17 WBC 7.0 RBC 4.98 Hgb 15.4 Hct 45.0 MCV 90.4 MCH 30.9 MCHC 34.2 RDW 12.9 Plt Count 202 Sodium 140 Potassium 4.5 Chloride 103 Carbon Dioxide 24 Anion Gap 18 BUN 16 Creatinine 0.85 Estimated GFR > 60 Random Glucose 115 Calcium 9.0 D Total Bilirubin 0.3 AST 53 H ALT 45 H Alkaline Phosphatase 78 Total Protein 7.6 Albumin 4.7 Triglycerides 1645 H Cholesterol 310 H HDL Cholesterol 27 L TSH 2.34 Urine Color Yellow Urine Appearance Clear Urine pH 5.5 Ur Specific [place] 1.025 Urine Protein Trace Urine Glucose (UA) Negative Urine Ketones Trace Urine Blood Negative Urine Nitrite Negative Ur Leukocyte Esterase Negative Coding Level of Care Code Est Pt Level 4 (97424) Diagnoses Essential hypertension I10 Alcohol use F10.90 Generalized anxiety disorder F41.1 Elevated liver enzymes R74.8 Mixed hyperlipidemia E78.2 Hyperlipidemia type: mixed hyperlipidemia Additional Codes GARY-7 Assessment Billing - GARY-7 Assessment Tool: GARY-7 Assessment 58290 ([id number]) PHQ-9 - 02979 - PHQ-9 Billing: Yes ([id number]) Time Spent (min) 38 Assessment & Plan Assessment & Plan (1) Essential hypertension: Code(s): I10 - Essential (primary) hypertension Category: Medical Plan: The patient blood pressure was 140/76 Patient reports having beef jerky last night that contains high sodium Reinforced low-salt diet, decrease alcohol and caffeine We will continue to monitor (2) Alcohol use: Code(s): F10.90 - Alcohol use, unspecified, uncomplicated Category: Social Hx Plan: Encouraged gradually decreasing the amount of alcohol (3) Generalized anxiety disorder: Code(s): F41.1 - Generalized anxiety disorder Category: Medical Plan: Encouraged CBT Continues citalopram 10 mg daily Denies SI/HI (4) Elevated liver enzymes: Code(s): R74.8 - Abnormal levels of other serum enzymes Category: Medical Plan: ALT 53, ALT 45 reports to working on cutting down his alcohol intake encouraged to continue decreasing his alcohol, fatty foots, abstain from taking tylenol will repeat CMP in 3 months (5) HLD (hyperlipidemia): Code(s): E78.5 - Hyperlipidemia, unspecified Category: Medical Qualifiers: Hyperlipidemia type: mixed hyperlipidemia Qualified Code(s): E78.2 - Mixed hyperlipidemia Plan: Triglycerides 1645-increased from 625; total cholesterol 310-increased 264; HDL 27 -decreased from 28 Reinforced low-cholesterol diet and activity as tolerated The patient is currently on rosuvastatin 10 mg, fenofibrate 145 mg daily ordered The patient has a custom to follow up in six-month. Explained to the patient that he needs to follow up more frequently until his levels are better controlled will repeat lipid in 3 months Orders: Orders Comprehensive Foley. Panel Fast 3 Months E78.2 - Mixed hyperlipidemia, F10.90 - Alcohol use, unspecified, uncomplicated, F41.1 - Generalized anxiety disorder, I10 - Essential (primary) hypertension, R74.8 - Abnormal levels of other serum enzymes Lipid Panel 3 Months E78.2 - Mixed hyperlipidemia, F10.90 - Alcohol use, unspecified, uncomplicated, F41.1 - Generalized anxiety disorder, I10 - Essential (primary) hypertension, R74.8 - Abnormal levels of other serum enzymes TSH reflex Free T4 3 Months E78.2 - Mixed hyperlipidemia, F10.90 - Alcohol use, unspecified, uncomplicated, F41.1 - Generalized anxiety disorder, I10 - Essential (primary) hypertension, R74.8 - Abnormal levels of other serum enzymes UA CC w/rflx Micro + Cult 3 Months E78.2 - Mixed hyperlipidemia, F10.90 - Alcohol use, unspecified, uncomplicated, F41.1 - Generalized anxiety disorder, I10 - Essential (primary) hypertension, R74.8 - Abnormal levels of other serum enzymes Vitamin D 25-OH Total 3 Months E78.2 - Mixed hyperlipidemia, F10.90 - Alcohol use, unspecified, uncomplicated, F41.1 - Generalized anxiety disorder, I10 - Essential (primary) hypertension, R74.8 - Abnormal levels of other serum enzymes Complete Blood Count Auto Diff 3 Months E78.2 - Mixed hyperlipidemia, F10.90 - Alcohol use, unspecified, uncomplicated, F41.1 - Generalized anxiety disorder, I10 - Essential (primary) hypertension, R74.8 - Abnormal levels of other serum enzymes Vitamin B12 and Folate 3 Months E78.2 - Mixed hyperlipidemia, F10.90 - Alcohol use, unspecified, uncomplicated, F41.1 - Generalized anxiety disorder, I10 - Essential (primary) hypertension, R74.8 - Abnormal levels of other serum enzymes Medications: New fenofibrate nanocrystallized 145 mg PO DAILY 90 tabs 3RF Refilled rosuvastatin 10 mg PO DAILY 90 tabs 3RF lisinopril 10 mg PO DAILY 90 tabs 1RF
--- OUTSIDE RECORDS SUMMARY | 2024-10-17 15:57 | XMS_ITS | Clinical Summary ---
Author Organization [facility] Address [address] [place], [place] [phone] Phone Care Team Providers Care Salesperson [employer] Name Role Phone Unknown, Unknown Primary Care [...] EDT) Cholesterol 203(Abnor ced H) <200 mg/dL [facility] Triglycerides 235(Abnor ced H) <150 mg/dL [facility] Cholesterol, HDL 38(Abnorm ally L) >40 mg/dL [facility] LDLC 118 <129 mg/dL [facility] Cholesterol/HDL Ratio 5.34(Abno rmally H) <4.96 [facility] 11/30/2017 6:49 PM EDT 11/30/2017 6:49 PM EDT us Aruna Castillo MD LAB BLOOD ORDERABLES [place] [address] from Last 3 Months or Most Recently Relevant to Health Maintenance Insurance [employer] PPO Care Teams Salesperson [employer] Relationship Specialty Start Date End Date Unknown, Unknown, PCP - General 04/01/19 Additional Source Comments The information contained in this document represents components of the legal health record. It is not the complete legal health record.[facility]
[2024-10-17 16:06] VITALS: BP 140/76; PULSE 80; TEMP 36.3; O2SAT 93; BMI 30.5
== END 2024-10-17 17:10 | disposition home or self-care (01) ==
LOC: HO.HMCH 15:41
PROVIDERS: PCP Internal Medicine
DX: I10 Essential (primary) hypertension (principal); F10.90 Alcohol use, unspecified, uncomplicated; F41.1 Generalized anxiety disorder; R74.8 Abnormal levels of other serum enzymes; E78.2 Mixed hyperlipidemia

== ENCOUNTER → 2024-10-17 15:41 | Outpatient (BNVA) | payer SELFPAY | PROVIDERS: PCP Internal Medicine | DX: I10 Essential (primary) hypertension (principal); E78.1 Pure hyperglyceridemia; F10.90 Alcohol use, unspecified, uncomplicated; F41.1 Generalized anxiety disorder; R71.8 Other abnormality of red blood cells; E78.2 Mixed hyperlipidemia | CPT/HCPCS: 96127 ==

== ENCOUNTER 2025-01-30 12:18 | Day surgery (SDC) | payer OTHER, SELFPAY ==
--- OUTSIDE RECORDS SUMMARY | 2025-01-23 16:34 | XMS_ITS | Clinical Summary ---
Author Organization [facility] Address [address] [place], [place] [phone] Phone Care Team Providers Care Wagon Winder Name Role Phone Unknown, Unknown Primary Care [...] 04/16/2012 , 10/06/2005 LIPID PANEL 11/30/2022 11/30/2017 INFLUENZA VACCINE (#1) 2024 8, 02/18/2016, 02/28/2011 COVID-19 VACCINE (2 - 2024-2 6 season) 2024 08/06/2020 RSV VACCINE (1 - 1-dose 75+ series) 09/30/2046 HIV ONE-TIME SCREENING (18-6 5 YEARS) Completed [...] EDT) Cholesterol 203(Abnor ced H) <200 mg/dL [facility] Triglycerides 235(Abnor ced H) <150 mg/dL [facility] Cholesterol, HDL 38(Abnorm ally L) >40 mg/dL [facility] LDLC 118 <129 mg/dL [facility] Cholesterol/HDL Ratio 5.34(Abno rmally H) <4.96 [facility] 11/30/2017 6:49 PM EDT 11/30/2017 6:49 PM EDT us Aruna Castillo MD LAB BLOOD BKR ORDERABLES Final Result [facility] [place] [address] from Last 3 Months or Most Recently Relevant to Health Maintenance Insurance [employer] PPO Care Teams Wagon Winder Relationship Specialty Start Date End Date Unknown, Unknown, PCP - General 04/01/19 Additional Source Comments The information contained in this document represents components of the legal health record. It is not the complete legal health record.[facility]
--- NOTE | 2025-01-25 13:26 | HO.ANESPROP2 ---
Documented by User: Maggie Garcia NP 01/25/25 13:27 HPI - Anesthesia Eval Consult details Narrative: 54yo M for Colonoscopy PMFSH Active Problems Active Problems: All Active Problems HLD (hyperlipidemia) (Acute) Elevated liver enzymes (Acute) Alcohol use (Acute) Colon cancer screening (Acute) Essential hypertension (Acute) Generalized anxiety disorder (Acute) Acute bronchitis (Acute) Annual physical exam (Acute) Borderline hypercholesterolemia (Acute) Past Medical History Medical History (Updated 10/17/24 @ 17:41 by MARISOL Trevizo) Alcohol use Colon cancer screening Essential hypertension Borderline hypercholesterolemia Generalized anxiety disorder Family History Family History Father Substance use disorder Mother Lewy body dementia Surgical History Surgical History (Updated 01/30/25 @ 12:42 by Shonna Arboleda RN) H/O wisdom tooth extraction History of surgery Social History Social History Housing: House Alcohol intake: current Alcohol intake frequency: 0-2 drinks per day Alcohol type: hard liquor Patient Tobacco Use Status: Current everyday Tobacco user Tobacco use type: Cigarette Cigarette Packs Per Day: 0.25 Cigarettes Per Day: 10 e-Cigarette/Vaping Use: Never Used Second Hand Smoke Exposure: Yes Use of substances other than those prescribed or required for medical reasons: Yes Are you DNR?: No Advance Directives: No Advance Directives Information Provided: Yes service: No Current occupational status: employed Current occupational exposures/hazards: No Cognitive needs: No Hearing needs: No Vision needs: Yes (Glasses) Meds Allergies Allergy/AdvReac Type Severity Reaction Status Date / Time No Known Allergies (No Known Allergy Verified 10/17/24 16:33 Allergies*) Exam Pertinent Lab Results Pertinent Lab Results: Laboratory Tests 10/14/24 07:17 WBC 7.0 Hgb 15.4 Hct 45.0 Plt Count 202 Sodium 140 Potassium 4.5 Chloride 103 Carbon Dioxide 24 BUN 16 Creatinine 0.85 Assessment and Plan Assessment Anesthesia Assessment: Chart Reviewed Documented by User: Ger De Dios MD 01/30/25 13:39 PMFSH Past Medical History Medical History (Updated 10/17/24 @ 17:41 by MARISOL Trevizo) Alcohol use Colon cancer screening Essential hypertension Borderline hypercholesterolemia Generalized anxiety disorder Family History Family History Father Substance use disorder Mother Lewy body dementia Family history of problems with anesthesia: No Surgical History Surgical History (Updated 01/30/25 @ 12:42 by Shonna Arboleda RN) H/O wisdom tooth extraction History of surgery History of Problems with Anesthesia: No Social History Social History Housing: House Alcohol intake: current Alcohol intake frequency: 0-2 drinks per day Alcohol type: hard liquor Patient Tobacco Use Status: Current everyday Tobacco user Tobacco use type: Cigarette Cigarette Packs Per Day: 0.25 Cigarettes Per Day: 10 e-Cigarette/Vaping Use: Never Used Second Hand Smoke Exposure: Yes Use of substances other than those prescribed or required for medical reasons: Yes Are you DNR?: No Advance Directives: No Advance Directives Information Provided: Yes service: No Current occupational status: employed Current occupational exposures/hazards: No Cognitive needs: No Hearing needs: No Vision needs: Yes (Glasses) Meds Allergies Allergy/AdvReac Type Severity Reaction Status Date / Time No Known Allergies (No Known Allergy Verified 10/17/24 16:33 Allergies*) Assessment and Plan Assessment Anesthesia Assessment: Anesthesia Plan Discussed and Smoking Cess. Discussed Final Anesthetic Review Family History of Problems with Anesthesia: No History of Problems with Anesthesia: No NPO: Yes ASA Class: III Final Preanesthetic Review: No Changes in Pt Med Stat, Meds/Allgs Chart Reviewed, Consent Obtained/Reviewed and Anes Risks/Benef Reviewed Patient Risk: Low Procedure Risk: Low Anesthetic Plan Anesthetic Plan: MAC: Disposition: Standard PACU
[2025-01-30 12:44] VITALS: BMI 29.4
[2025-01-30 12:55] VITALS: BP 123/67; PULSE 75; RESP 16; TEMP 36.7; O2SAT 96
[2025-01-30] MEDS: Lactated Ringers 1,000 ML 100 ML IVCONT (13:06)
--- NOTE | 2025-01-30 13:14 | MHC.SHP ---
Pre-Procedural Eval Section A - 24 Hr Update-Section A only Date of Service: 01/30/25 The patient is an INPATIENT: No The patient has been examined within 24 hours of the surgical procedure. The History & Physical has been completed within 30 days and I have reviewed it.: No Section B - Complete if H&P > 30 days Chief Complaint: screening Relevant Family History (Specify if Yes): No Relevant Social History: Tobacco Use Present Medications: see Short Stay Collaborative assessment Medical History: Significant History (Alcohol use Colon cancer screening Essential hypertension Borderline hypercholesterolemia Generalized anxiety disorder) History of Previous Operations: No relevant previous surgery Allergies: Allergies Allergy/AdvReac Type Severity Reaction Status Date / Time No Known Allergies (No Known Allergy Verified 10/17/24 16:33 Allergies*) Review of Systems Sugical H&P ROS: Negative: Constitution, Cardiovascular, Respiratory and Gastrointestinal Exam Surgical H&P Exam: Normal: Heart, Normal: Lungs, Normal: Extremities and Normal: Abdomen Plan Diagnosis/Plan: Unchanged I have reviewed the history and physical and performed a pertinent physical examination on my patient. No changes have occurred unless specified. Time Spent With Patient Time: Total time managing care of this patient today ____ minutes.
--- NOTE | 2025-01-30 13:30 | HO.ANESPROP2 ---
HPI - Anesthesia Eval Consult details Narrative: 54yo M for Colonoscopy [facility] Active Problems Active Problems: All Active Problems (Updated 10/17/24 @ 17:41 by MARISOL Trevizo) HLD (hyperlipidemia) (Acute) Elevated liver enzymes (Acute) Acute bronchitis (Acute) Annual physical exam (Acute) Alcohol use (Acute) Colon cancer screening (Acute) Essential hypertension (Acute) Generalized anxiety disorder (Acute) Borderline hypercholesterolemia (Acute) Past Medical History Medical History Alcohol use Colon cancer screening Essential hypertension Borderline hypercholesterolemia Generalized anxiety disorder Family History Family History Father Substance use disorder Mother Lewy body dementia Family history of problems with anesthesia: No Surgical History Surgical History H/O wisdom tooth extraction History of surgery History of Problems with Anesthesia: No Social History Social History Housing: House Alcohol intake: current Alcohol intake frequency: 0-2 drinks per day Alcohol type: hard liquor Patient Tobacco Use Status: Current everyday Tobacco user Tobacco use type: Cigarette Cigarette Packs Per Day: 0.25 Cigarettes Per Day: 10 e-Cigarette/Vaping Use: Never Used Second Hand Smoke Exposure: Yes Use of substances other than those prescribed or required for medical reasons: Yes Are you DNR?: No Advance Directives: No Advance Directives Information Provided: Yes service: No Current occupational status: employed Current occupational exposures/hazards: No Cognitive needs: No Hearing needs: No Vision needs: Yes (Glasses) Meds Allergies Allergy/AdvReac Type Severity Reaction Status Date / Time No Known Allergies (No Known Allergy Verified 10/17/24 16:33 Allergies*) Active Medications: Current Medications Lactated Ringer's (Lr) 1,000 mls @ 100 mls/hr IVCONT .Q10H OPAL Last Admin: 01/30/25 13:06 Dose: 100 mls/hr Exam Exam Date and Time: 01/30/25 Height,Weight and Vital Signs: Height 5 ft 9 in Weight 90.4 kg Last Vital Signs Temp 98.0 F 01/30/25 12:55 Pulse 75 01/30/25 12:55 Resp 16 01/30/25 12:55 BP 123/67 01/30/25 12:55 Pulse Ox 96 01/30/25 12:55 O2 Del Method Room Air 01/30/25 12:55 Pertinent Lab Results Pertinent Lab Results: Laboratory Tests 10/14/24 07:17 WBC 7.0 Hgb 15.4 Hct 45.0 Plt Count 202 Sodium 140 Potassium 4.5 Chloride 103 Carbon Dioxide 24 BUN 16 Creatinine 0.85 Airway Mallampati Class: II TM Dist: >3cm Neck ROM: Full Heart: rrr Lungs: ctab vesicular Assessment and Plan Assessment Anesthesia Assessment: Anesthesia Plan Discussed and Chart Reviewed Final Anesthetic Review Family History of Problems with Anesthesia: No History of Problems with Anesthesia: No NPO: Yes ASA Class: II Final Preanesthetic Review: No Changes in Pt Med Stat, Meds/Allgs Chart Reviewed, Consent Obtained/Reviewed and Anes Risks/Benef Reviewed Patient Risk: Low Procedure Risk: Low Anesthetic Plan Anesthetic Plan: MAC: Disposition: Standard PACU
--- NOTE | 2025-01-30 15:08 | HO.OPN-COLON ---
Colonoscopy Operative Note Operative Note Date of Service: 01/30/25 Narrative: COLONOSCOPY TILL CECUM WITH SNARE POLYPECTOMY Pre-op diagnosis: Colon cancer screening (first colon). Post-op diagnosis:? Colon polyps, Diverticulosis, hemorrhoids Endoscopist:? Dano Elizabeth MD Anesthesia:?MAC Consent: Indications for the procedure and potential complications of bleeding, perforation, reaction to medications and missed diagnosis were discussed with the patient and informed consent was obtained. Instrument: Olympus CF H 190 L variable stiffness adult colonoscope Monitoring: Vital signs and clinical assessment, intermittent blood pressure monitoring, continuous EKG monitoring, Pulse oximetry and Carbon Dioxide monitoring were done throughout the procedure. Please see anesthesia flowsheet. Colon withdrawl time was 25 minutes. Procedure: The patient was placed in the left lateral decubitis position and pre-procedure medications were administered. After a digital rectal examination of the ano-rectum, the video colonoscope was inserted into the rectum and advanced through the colon to the cecum. The colonoscope was slowly withdrawn in a retrograde panoramic fashion and the colon mucosa was carefully examined including a retroflexed view of the rectum. Findings and interventions are described below. Procedure Difficulty: without difficulty Findings: Terminal Ileum: Not evaluated Cecum: A 10-12 mm sessile polyp just adjacent to the appendicular orifice. Polyp were raised with 3 cc of Eleview and removed with a stiff hot snare. Ascending Colon: A 6-7 mm sessile polyp in the proximal ascending colon - removed with a cold snare Transverse Colon: Normal Descending Colon: Moderate diverticulosis Sigmoid Colon: Moderate diverticulosis Rectum: Normal Ano-rectum: Moderate internal hemorrhoids Colon preparation: Good after copious irrigation. [place] Bowel Preparation Scale Right colon; 2 Transverse colon: 2 Left colon; 2 (0 = Unprepared colon segment with mucosa not seen due to solid stool that cannot be cleared. 1 = Portion of mucosa of the colon segment seen, but other areas of the colon segment not well seen due to staining, residual stool and/or opaque liquid. 2 = Minor amount of residual staining, small fragments of stool and/or opaque liquid, but mucosa of colon segment seen well. 3 = Entire mucosa of colon segment seen well with no residual staining, small fragments of stool or opaque liquid) Impression and Post Procedure Diagnosis: Colonoscopy Findings: Two small to medium sized polyps were removed Moderate diverticulosis seen in the left colon Moderate hemorrhoids on retroflexed exam. Plan: I will send a letter with biopsy results. Repeat Colonoscopy in 1-2 years if polyps are adenomatous (to check polypectomy site in the cecum) and 10 year if polyps are hyperplastic. (Dulcolax 10 mg daily starting 5 days prior to next colon appt) Above findings were reviewed with the patient and relevant handouts were given and the discharge area.
[2025-01-30 15:10] VITALS: BP 100/64; PULSE 68; RESP 15; TEMP 36.3; O2SAT 98
[2025-01-30 15:25] VITALS: BP 105/72; PULSE 72; RESP 16; TEMP 36.3; O2SAT 99
== END 2025-01-30 15:43 | disposition home or self-care (01) ==
PROVIDERS: PCP Internal Medicine; Visit Provider Internal Medicine Gastroenterology
PROC: 0DJD8ZZ Inspection of Lower Intestinal Tract, Via Natural or Artificial Opening Endoscopic (ICD-10-PCS; CPT 45378; principal; 2025-01-30 14:00)
DX: Z12.11 Encounter for screening for malignant neoplasm of colon (principal); K64.8 Other hemorrhoids; K57.30 Diverticulosis of large intestine without perforation or abscess without bleeding; D12.2 Benign neoplasm of ascending colon; D12.0 Benign neoplasm of cecum
CPT/HCPCS: 45385; 88305; J2250; J2704

== ENCOUNTER → 2025-01-30 12:18 | Outpatient (BNV) | payer OTHER, SELFPAY | PROVIDERS: PCP Internal Medicine; Visit Provider Internal Medicine Gastroenterology | DX: Z12.11 Encounter for screening for malignant neoplasm of colon (principal); K63.5 Polyp of colon; K57.90 Diverticulosis of intestine, part unspecified, without perforation or abscess without bleeding; K64.8 Other hemorrhoids | CPT/HCPCS: 45385 ==